=== PATIENT | female | born 1970 | race Caucasian/White ===

== ENCOUNTER 2017-08-23 09:56 | Outpatient (CLI) | payer OTHER ==
--- NOTE | 2017-08-23 14:39 | MMO ---
MAMMOGRAM DIGITAL SCREENING BILATERAL: DATE: 08/23/17. COMPARISON: 08/02/16, 05/13/15, and 04/14/14. HISTORY: A 47-year-old female for routine bilateral screening mammogram. TECHNIQUE: Digital mammographic views. Computer-aided detection (CAD) utilized. FINDINGS: The breasts are extremely dense, which lowers the sensitivity of mammography. There is no evidence of suspicious mass, suspicious calcifications, or architectural distortion. The re is no significant interval change since the prior mammogram. IMPRESSION: 1) BIRADS 1- Negative. 2) Recommendation: routine bilateral annual screening mammogram (unless the patient develops suspicio us clinical findings that would warrant earlier imaging follow up). fabian [] POS: FAWN
== END 2017-08-23 09:57 | disposition home or self-care (01) ==
LOC: SCSMAMMO 09:56
PROVIDERS: ATTEND Obstetrics & Gynecology
DX: Z12.31 Encounter for screening mammogram for malignant neoplasm of breast (principal)
CPT/HCPCS: 77067

== ENCOUNTER 2020-04-05 17:04 | Inpatient (IN) | payer OTHER ==
[2020-04-05 18:07] LABS: #Basophils 0.1 thou/uL (0.0-0.2); #Eosinphils 0.1 thou/uL (0.0-0.7); #Lymphocytes 2.4 thou/uL (1.20-3.40); #Monocytes 0.6 thou/uL (0.11-0.59); #Neutrophils 4.6 thou/uL (1.40-6.50); %Basophils 0.7 % (0.0-1.0); %Eosinophils 0.9 % (0.0-10.0); %Lymphocytes 31.2 % (21.0-51.0); %Monocytes 7.8 % (0.0-10.0); %Neutrophils 59.4 % (42.0-75.0); Mean Corpuscular HGB CONC 34.6 g/dL (32.0-36.0); Mean Corpuscular Hemoglobin 31.5 pg (27.0-31.0); Mean Platelet Volume 10.1 fL (7.4-10.4); Platelet Count 169 thou/uL (130-400); RBC Distribution Width 11.6 % (11.5-14.5); Red Blood Cell (RBC) Count 5.08 mill/uL (4.20-5.40); White Blood Cell (WBC) Count 7.8 thou/uL (4.8-10.8)
--- NOTE | 2020-04-05 18:16 | RAD ---
PORTABLE CHEST: History: Heart palpitations Comparison: None FINDINGS: Heart size and mediastinum within normal limits. Electronic device overlying the left chest. There is a nodular density seen in the right upper lobe measuring in the 7-8 mm range. This is not definitely calcified. There is moderate S-shaped scoliotic change to the spine. IMPRESSION: 1. No active intrathoracic disease. 2. 7 mm right upper lobe pulmonary nodule. There are no prior chest x-rays for comparison. I would grijalva ggest consideration for CT on a non-emergent basis for assessment. POS: OFF
[2020-04-05 18:27] LABS: Bacteria/HPF None Seen HPF (None Seen); Bilirubin Negative (Negative); Blood, Urine Negative (Negative); Clarity Clear (Clear); Glucose, Urine (Dipstick) Normal (Negative); Ketone, Urine 10 mg/dL (Negative); Leukocyte 75 Leu/uL (Negative); Nitrite Negative (Negative); Protein, Urine (Dipstick) Negative (Neg-Trace); RBC/HPF 0-3 HPF (0-3); Specific Gravity, Urine 1.005 (1.002-1.036); Urobilinogen Normal mg/dL (Less than 2); pH, Urine 5.5 (5.0-9.0)
[2020-04-05 18:28] LABS: ALT (SGPT) 12 U/L (8-55); AST (SGOT) 18 U/L (5-34); Albumin 4.7 g/dL (3.5-5.0); Alkaline Phosphatase 69 U/L (40-110); Anion Gap 13 mmol/L (10-20); BUN (Urea Nitrogen) 10 mg/dL (9.8-20.1); Bilirubin, Total 0.8 mg/dL (0.2-1.2); Calc. Creatinine Clearance 0 mL/min (70-130); Calcium 9.5 mg/dL (7.8-10.44); Carbon Dioxide 28 mmol/L (22-29); Chloride 100 mmol/L (98-107); Estimated GFR-MDRD 73; Globulin 3.2 g/dL (2.4-3.5); Glucose 118 mg/dL (70-105); Lipase 59 U/L (8-78); Magnesium 2.1 mg/dL (1.6-2.6); Potassium 3.4 mmol/L (3.5-5.1); Protein, Total 7.9 g/dL (6.0-8.3); Sodium 138 mmol/L (136-145)
[2020-04-05 18:29] LABS: Amphetamine Not Detected (NotDetected); Barbiturates Screen Not Detected (NotDetected); Benzodiazepine Screen Not Detected (NotDetected); Cocaine Metabolite Screen Not Detected (NotDetected); Medtox Control Line Valid? VALID (VALID); Medtox Reader # READER 1; Methadone Not Detected (NotDetected); Methamphetamine Not Detected (NotDetected); Opiate Screen Not Detected (NotDetected); Oxycodone Screen Not Detected (NotDetected); Phencyclidine (PCP) Not Detected (NotDetected); THC/Cannabinoid Screen Not Detected (NotDetected); Tricyclic Screen Not Detected (NotDetected)
[2020-04-05] MEDS ORDERED: Mag-Al 1200 mg/1200 mg/30 ML UDCUP ONE (20:16)
[2020-04-05] MEDS ORDERED: Lidocaine Viscous Sol 2% 15 ml UD Cup ONE (20:16)
--- NOTE | 2020-04-05 20:44 | PDOC.HHP ---
Hospitalist HPI - History of Present Illness palpitations History of Present Illness: Ms. Velasco is a 49 year-old female with a PMHx of PACs, who presents to the ED for a 1.5 week onset of worsening palpitations associated with indigestion, and fatigue. Pt reports that 1.5 weeks ago she was awoken from sleep with palpitations. Later that morning she developed indigestion and nausea. Pt has had loss of appetite but no vomiting. Denies heartburn or prior GI issues. Denies chest pain. Reports mild discomfort during palpitations. Denies pressure , tightness, or radiation. Pt has history of PACs beginning in her 20s, but she has never been symptomatic in the past. Pt follows with cardiology, Dr. Hale who she saw in the office for these palpitations three days ago. At that time Dr. Figueroa started pt on a rn cardiac rehab as well as metoprolol 25 mg. Pt reports she has been reluctant to take this medication, but did take one dose this am, with no change in her symptoms. She endorses mild lightheadedness upon standing. Denies changes in vision or LOC. In ED EKG revealed a HR of 79, sinus rhythm. ND interval shortened. QTc 408. t- wave inversions in inferolateral leads, sub-millimeter ST depression in lateral leads V3-V5. Initial troponin 0.016. CXR with no acute process (incidental pulmonary nodule). TSH 20.417, drug screen negative, UA negative, Mg 2.1, Na 138 , K 3.4, BUN/Cr 10/0.82. H/H stable at 16.0/46.2. Vital signs in ER 110/79, 81, 16, 98% on RA. HD stable. Hospitalist ROS - Review of Systems Constitutional: reports: malaise. denies: fever, chills, sweats, weakness, other Eyes: denies: pain, vision change, conjunctivae inflammation, eyelid inflammation, redness, other ENT: denies: ear pain, ear discharge, nose pain, nose discharge, nose congestion , mouth pain, mouth swelling, throat pain, throat swelling, other Respiratory: denies: cough, dry, shortness of breath, hemoptysis, SOB with excertion, pleuritic pain, sputum, wheezing, other Cardiovascular: reports: palpitations. denies: chest pain, orthopnea, paroxysmal noc. dyspnea, edema, light headedness, other Gastrointestinal: reports: nausea. denies: vomiting, abdominal pain, diarrhea, constipation, melena, hematochezia, other Genitourinary: denies: dysuria, frequency, incontinence, hematuria, retention, other Musculoskeletal: denies: neck pain, shoulder pain, arm pain, back pain, hand pain, leg pain, foot pain, other Skin: denies: rash, lesions Neurological: denies: weakness, numbness, incoordination, change in speech, confusion, seizures, other - Medication Medications: No home medications. Pt recently rx metoprolol [address] Ford which she has only taken one dose of. Hospitalist History - Past Medical History Cardiac: reports: Other (PACs) - Family History Family History: reports: no pertinent history - Social History Smoking Status: Never smoker Alcohol: reports: None Drugs: reports: none Living Situation: With Family Activity level: independent ambulation - Exam General Appearance: NAD, awake alert Eye: PERRL, anicteric sclera ENT: normocephalic atraumatic, no oropharyngeal lesions, moist mucosa Neck: supple, symmetric, no JVD, no thyromegaly, no lymphadenopathy, no carotid bruit Heart: RRR, no murmur, no gallops, no rubs, normal peripheral pulses Respiratory: CTAB, no wheezes, no rales, no ronchi, normal chest expansion, no tachypnea, normal percussion Gastrointestinal: soft, non-tender, non-distended, normal bowel sounds, no palpable masses, no hepatomegaly, no splenomegaly, no bruit Extremities: no cyanosis, no clubbing, no edema Skin: normal turgor, no lesions, no rashes Neurological: cranial nerve grossly intact, normal sensation to touch, no weakness, no focal deficits, no new deficit Musculoskeletal: normal tone, normal strength Psychiatric: normal affect, normal behavior, A&O x 3 Hospitalist Results - Labs Result Diagrams: 04/05/20 17:47 04/05/20 17:11 Lab results: WBC 7.8 thou/uL (4.8-10.8) 04/05/20 17:47 Hgb 16.0 g/dL (12.0-16.0) 04/05/20 17:47 Hct 46.2 % (36.0-47.0) 04/05/20 17:47 MCV 91.0 fL (78.0-98.0) 04/05/20 17:47 Plt Count 169 thou/uL (130-400) 04/05/20 17:47 Neutrophils % 59.4 % (42.0-75.0) 04/05/20 17:47 Sodium 138 mmol/L (136-145) 04/05/20 17:11 Potassium 3.4 mmol/L (3.5-5.1) L 04/05/20 17:11 Chloride 100 mmol/L (98-107) 04/05/20 17:11 Carbon Dioxide 28 mmol/L (22-29) 04/05/20 17:11 BUN 10 mg/dL (9.8-20.1) 04/05/20 17:11 Creatinine 0.82 mg/dL (0.6-1.1) 04/05/20 17:11 Glucose 118 mg/dL (70-105) H 04/05/20 17:11 Calcium 9.5 mg/dL (7.8-10.44) 04/05/20 17:11 Total Bilirubin 0.8 mg/dL (0.2-1.2) 04/05/20 17:11 AST 18 U/L (5-34) 04/05/20 17:11 ALT 12 U/L (8-55) 04/05/20 17:11 Alkaline Phosphatase 69 U/L (40-110) 04/05/20 17:11 Troponin I 0.016 ng/mL (< 0.028) 04/05/20 17:10 Serum Total Protein 7.9 g/dL (6.0-8.3) 04/05/20 17:11 Albumin 4.7 g/dL (3.5-5.0) 04/05/20 17:11 Lipase 59 U/L (8-78) 04/05/20 17:11 Urine Ketones 10 mg/dL (Negative) A 04/05/20 18:00 Urine Blood Negative (Negative) 04/05/20 18:00 Urine Nitrite Negative (Negative) 04/05/20 18:00 Ur Leukocyte Esterase 75 Arely/uL (Negative) A 04/05/20 18:00 Urine RBC 0-3 HPF (0-3) 04/05/20 18:00 Urine WBC 4-6 HPF (0-3) A 04/05/20 18:00 Ur Squamous Epith Cells 4-6 HPF (0-3) A 04/05/20 18:00 Urine Bacteria None Seen HPF (None Seen) 04/05/20 18:00 Hospitalist H&P A/P - Problem (1) Heart palpitations Code(s): R00.2 - PALPITATIONS Status: Acute (2) Indigestion Code(s): K30 - FUNCTIONAL DYSPEPSIA Status: Acute (3) Hypokalemia Code(s): E87.6 - HYPOKALEMIA Status: Acute (4) Pulmonary nodule Code(s): R91.1 - SOLITARY PULMONARY NODULE Status: Acute - Plan Plan: Heart Palpitations: 49F with hx of PACs followed by Dr. Figueroa of cardiology who presents with 1.5 week onset of persistent palpitations associated with nausea, indigestion, and fatigue. Pt has rn cardiac rehab in place from the cardiology office placed on 04/02/20. Initial workup in the ED revealed an EKG which showed NSR with non- specific t-wave inversions, a normal QTc, and shortened ND interval of 82. Initial troponin 0.016. Pt denies chest pain. TSH nl. CXR no acute process. Drug screen negative. Mg 2.1. PLAN: -Telemetry monitoring -Trend troponin -ASA -Echocardiogram -Repeat EKG -Dr. Ford consulted, reccs appreciated Indigestion: 1.5 weeks of indigestion and poor PO intake associated with palpitations. Denies hx of prior GI problems such as GERD. Pt received GI cocktail in ED. PLAN: -GI cocktail -Start pantoprazole Hypokalemia: Mild hypokalemia to 3.4. Will repelete and monitor. Pulmonary nodule: Incidental pulmonary nodule noted on CXR of 7mm. Pt will need outpatient follow up with CT scan in 6-8 months per Fleischner Guidelines. DVT prophylaxis: SCD boots, encourage ambulation FULL CODE Case discussed with attending physician, Dr. Castanon.
[2020-04-05 21:02] LABS: Troponin I 0.023 ng/mL (< 0.028)
[2020-04-05] MEDS ORDERED: Lactated Ringer's 1,000 ML IV SCH ×2 (22:00→22:15)
[2020-04-05] MEDS ORDERED: Electrolyte Replacement Protoc 1 EACH EACH FS SCH (22:15)
[2020-04-05] MEDS ORDERED: Lactated Ringer's 500 ML IV SCH (22:19)
[2020-04-05] MEDS ORDERED: Aspirin 325 mg Enteric Coated Tablet PO SCH (22:30)
[2020-04-05] MEDS ORDERED: Potassium Chloride 40 MEQ in Sodium Chloride 0.9% 250 ML 250 ML IVPB SCH (22:30)
[2020-04-05 23:41] LABS: Troponin I 0.012 ng/mL (< 0.028)
[2020-04-06 04:31] LABS: #Basophils 0.1 thou/uL (0.0-0.2); #Eosinphils 0.1 thou/uL (0.0-0.7); #Lymphocytes 2.7 thou/uL (1.20-3.40); #Monocytes 0.7 thou/uL (0.11-0.59); #Neutrophils 3.3 thou/uL (1.40-6.50); %Basophils 0.7 % (0.0-1.0); %Eosinophils 2.1 % (0.0-10.0); %Lymphocytes 39.1 % (21.0-51.0); %Neutrophils 48.2 % (42.0-75.0); Mean Corpuscular HGB CONC 32.8 g/dL (32.0-36.0); Mean Corpuscular Volume 91.6 fL (78.0-98.0); Mean Platelet Volume 10.2 fL (7.4-10.4); Platelet Count 150 thou/uL (130-400); RBC Distribution Width 11.6 % (11.5-14.5); Red Blood Cell (RBC) Count 4.65 mill/uL (4.20-5.40); White Blood Cell (WBC) Count 6.8 thou/uL (4.8-10.8)
[2020-04-06 04:50] LABS: Anion Gap 11 mmol/L (10-20); BUN (Urea Nitrogen) 10 mg/dL (9.8-20.1); Calc. Creatinine Clearance 69 mL/min (70-130); Calcium 8.8 mg/dL (7.8-10.44); Carbon Dioxide 25 mmol/L (22-29); Chloride 106 mmol/L (98-107); Estimated GFR-MDRD 84; Glucose 95 mg/dL (70-105); Potassium 4.1 mmol/L (3.5-5.1); Sodium 138 mmol/L (136-145)
[2020-04-06] MEDS ORDERED: Aspirin 325 mg Enteric Coated Tablet PO SCH (09:00)
--- NOTE | 2020-04-06 10:49 | PDOC.HOSPP ---
- Subjective Encounter Date: 04/06/20 Encounter Time: 07:20 Subjective: Patient was seen in follow-up for palpitations. She reports on and off palpitations. She reports that she has not been eating well secondary to palpitations. She reports losing weight. - Objective Vital Signs & Weight: Vital Signs (12 hours) Temp Pulse Resp BP Pulse Ox 04/06/20 07:11 97.7 F 64 14 106/71 98 04/06/20 03:18 97.7 F 68 18 102/71 98 04/05/20 23:15 61 18 115/71 Weight Weight 106 lb 6.4 oz I&O: 04/05/20 04/06/20 04/07/20 06:59 06:59 06:59 Intake Total 939 Output Total 300 Balance 639 Result Diagrams: 04/06/20 04:12 04/06/20 04:12 Additional Labs: I reviewed patient's labs and MAR EKG Reviewed by me: Yes (Telemetry-NSR) Hospitalist ROS - Review of Systems Cardiovascular: reports: palpitations. denies: chest pain, orthopnea, paroxysmal noc. dyspnea, edema, light headedness Gastrointestinal: denies: nausea, vomiting, abdominal pain, diarrhea, constipation, melena, hematochezia - Medication Medications: Active Medications Generic Name Dose Route Start Last Admin Trade Name Freq PRN Reason Stop Dose Admin Metoprolol Succinate 25 mg 04/06/20 09:00 04/06/20 10:24 Toprol Xl PO Not Given DAILY TYREE Sodium Chloride 10 ml 04/05/20 20:14 04/05/20 22:15 Flush - Normal Saline IVF 10 ml PRN PRN Administration Saline Flush - Exam General Appearance: awake alert Eye: anicteric sclera ENT: moist mucosa Neck: supple Heart: RRR Respiratory: CTAB Gastrointestinal: soft, non-tender Extremities: no cyanosis Skin: no rashes Musculoskeletal: normal tone, no muscle wasting Psychiatric: normal affect, normal behavior Hosp A/P - Plan (1) Heart palpitations Code(s): R00.2 - PALPITATIONS Status: Acute (2) UTI Status: Acute (4) Pulmonary nodule Code(s): R91.1 - SOLITARY PULMONARY NODULE Status: Acute - Plan Monitor on telemetry. Await cardiology input. Discussed with pt re: urine findings. Pt has a h/o UTIs in the past, responded to Bactrim Pt agrees to treatment. Follow up on lung nodule as outpatient.
[2020-04-06] MEDS ORDERED: Sulfameth/Trimethoprim DS 800-160mg TAB PO SCH (11:30)
[2020-04-06 11:41] LABS: SARS-CoV-2 MS2 Positive; SARS-CoV-2 N Gene Negative; SARS-CoV-2 S Gene Negative; SARS-CoV-2 by NAA Not Detected (NotDetected); SARS-CoV-2 orf1ab Negative
--- NOTE | 2020-04-06 12:44 | CON ---
DATE OF CONSULTATION: 04/06/2020 REASON FOR CONSULTATION: Palpitations. PRIMARY NETWORK SYSTEMS ADMINISTRATOR: Anton Figueroa MD HISTORY OF PRESENT ILLNESS: Ms. Velasco is a very pleasant 49-year-old white female who comes to the hospital for palpitations. She saw Dr. Figueroa on the 02 of April for the same reason. She had a Cardea SOLO setup. At that point, she had seen her primary care doctor that morning and an EKG was done. She had an irregular rhythm that was suspicious for atrial fibrillation; however, on Dr. Figueroa's evaluation, she actually was in sinus rhythm with multiple PACs making her heart rhythm look irregular. No atrial fibrillation. She was started on a beta keegan, however, she did not take it. She did not want to be on any medications, so she did not take this medicine. She started to feel a lot worse yesterday evening, so decided to take one dose at that time, but she ended up coming in because she felt like there was a chest tightness every time the PACs started to come. PAST MEDICAL HISTORY: PACs. SOCIAL HISTORY: No alcohol, tobacco, or drugs. FAMILY HISTORY: Negative. OUTPATIENT MEDICATIONS: None. She is supposed to be on Toprol-XL 25 mg a day, but she has not really been taking it. ALLERGIES: PENICILLIN. PAST SURGICAL HISTORY: None. REVIEW OF SYSTEMS: A 12-point review of systems was done and was found to be negative other than stated in the history of present illness. PHYSICAL EXAMINATION: VITAL SIGNS: Temperature 97.6, pulse 72, respiratory rate 18, satting 98% on room air, blood pressure 106/71. GENERAL: Awake, alert, oriented x3, no distress. HEENT: Normocephalic and atraumatic. NECK: Supple. LUNGS: Clear. CARDIOVASCULAR: S1 and S2. No S3 or S4. No murmurs. ABDOMEN: Soft. Positive bowel sounds. EXTREMITIES: No edema. SKIN: Warm and dry. LABORATORY WORK: Reviewed. CBC was unremarkable. Chemistry, she had a low potassium at 3.4, has been replaced, it is now 4.1. Troponin was negative x3. TSH was normal. UA was unremarkable. Toxicology was negative. COVID PCR was not detected. Chest x-ray was unremarkable. ASSESSMENT AND PLAN: 1. Premature atrial contractions. 2. A 7 mm right upper pulmonary nodule. PLAN: 1. Restart beta keegan. 2. Awaiting echocardiogram for today. 3. She states she feels there is a chest tightness. She feels like she is having a heart attack when she gets the PACs. I would prefer to risk stratify her as an inpatient. We will set up a stress test for tomorrow as the room is being terminally cleaned today and unavailable. Thank you for letting us to participate in the care of your patient. Dr. Figueroa is the primary brake repairer bus and will follow up in the morning. Job ID: [id number]
[2020-04-06] MEDS: Aspirin 81 mg Enteric Coated Tablet PO SCH (14:09)
[2020-04-06] MEDS: Sulfameth/Trimethoprim DS 800-160mg TAB PO SCH (19:52)
[2020-04-07 04:47] LABS: #Eosinphils 0.2 thou/uL (0.0-0.7); #Lymphocytes 1.9 thou/uL (1.20-3.40); #Monocytes 0.7 thou/uL (0.11-0.59); #Neutrophils 3.8 thou/uL (1.40-6.50); %Basophils 0.4 % (0.0-1.0); %Eosinophils 2.6 % (0.0-10.0); %Monocytes 11.2 % (0.0-10.0); %Neutrophils 56.9 % (42.0-75.0); Hemoglobin 15.3 g/dL (12.0-16.0); Mean Corpuscular HGB CONC 33.2 g/dL (32.0-36.0); Mean Corpuscular Hemoglobin 30.6 pg (27.0-31.0); Mean Platelet Volume 10.4 fL (7.4-10.4); Platelet Count 157 thou/uL (130-400); RBC Distribution Width 11.7 % (11.5-14.5); White Blood Cell (WBC) Count 6.6 thou/uL (4.8-10.8)
[2020-04-07 05:15] LABS: Anion Gap 15 mmol/L (10-20); BUN (Urea Nitrogen) 9 mg/dL (9.8-20.1); Calc. Creatinine Clearance 63 mL/min (70-130); Calcium 9.2 mg/dL (7.8-10.44); Carbon Dioxide 21 mmol/L (22-29); Chloride 106 mmol/L (98-107); Estimated GFR-MDRD 75; Glucose 94 mg/dL (70-105); Potassium 4.2 mmol/L (3.5-5.1); Sodium 138 mmol/L (136-145)
[2020-04-07] MEDS ORDERED: Regadenoson 0.4 MG/5 ML SYRINGE ONE (10:43)
--- NOTE | 2020-04-07 11:09 | NM ---
EXAM: CARDIAC SPECT HISTORY: Chest pain TECHNIQUE: A myocardial perfusion scan was performed using the single isotope 1 day protocol with tamia hnetium 99m sestamibi. [10 mCi] was injected intravenously for the rest exam followed by 30 mCi for the stress study. Pharmacologic stress with Lexiscan was monitored and interpreted by Scar Neal NP. FINDINGS: Homogeneous tracer distribution is seen in the myocardial segments on stress and rest image s without fixed or reversible defects. Gated SPECT LVEF: 93% Wall motion exam: Normal IMPRESSION: Normal myocardial perfusion scan
[2020-04-07] MEDS: Aspirin 81 mg Enteric Coated Tablet PO SCH (12:43)
[2020-04-07] MEDS: Sulfameth/Trimethoprim DS 800-160mg TAB PO SCH ×2 (12:43→21:37)
[2020-04-07] MEDS ORDERED: Iopamidol-370 76% 500 ML 1 ML ONE (13:07)
--- NOTE | 2020-04-07 13:29 | PRG ---
DATE OF SERVICE: 04/07/2020 SUBJECTIVE: Ms. Velasco continues to complain of decreased energy and decreased appetite. No specific chest pain, pressure, shortness of breath. She did have an EKG that did suggest inverted T-waves, which is slightly worse than her previous EKG 2 years ago. Her recent stress test was felt to be normal. Her echo also showed LVEF 60% to 65% with normal diastolic function. Her monitor on telemetry has been within normal limits with rare PVCs or PACs. OBJECTIVE: VITAL SIGNS: Blood pressure 122/74, pulse 74, temperature 98.4. LUNGS: Clear to auscultation. HEART: Deferred due to COVID. PERTINENT LABORATORY DATA: Hemoglobin 15.3, hematocrit 46. IMPRESSION: 1. Decreased energy. 2. Decreased appetite. 3. Abnormal EKG. RECOMMENDATIONS: Ms. Velasco initially was felt to be having symptoms for PACs. These were noted in the office late last week. She was placed on Toprol. It appears this has helped because she has had no PVCs on the monitor, but continues with decreased energy and decreased appetite. There does not appear to be any specific cardiac symptoms noted. Based on her EKG, I did discuss proceeding with coronary angiography which I think will be of low yield based on no risk factors and no symptoms of angina. She has deferred. From a cardiac standpoint, I have no further recommendations. We will review her Cardea Solo which is due today. Job ID: [id number]
--- NOTE | 2020-04-07 16:46 | PDOC.HOSPP ---
- Subjective Encounter Date: 04/07/20 Encounter Time: 16:45 Subjective: Pt seen for followup re:UTI. reports ongoing poor appetite. - Objective Vital Signs & Weight: Vital Signs (12 hours) Temp Pulse Resp BP BP Pulse Ox 04/07/20 15:16 97.9 F 73 16 119/75 97 04/07/20 11:02 98.4 F 84 16 124/74 97 04/07/20 07:11 98.3 F 73 16 111/68 97 Weight Admit Weight 106 lb 6.4 oz Weight 107 lb 6.4 oz I&O: 04/06/20 04/07/20 04/08/20 06:59 06:59 06:59 Intake Total 939 1800 Output Total 300 1220 400 Balance 639 580 -400 Result Diagrams: 04/07/20 04:14 04/07/20 04:14 Additional Labs: Labs and MARs reviewed by me EKG Reviewed by me: Yes (Tele: NSR) Hospitalist ROS - Review of Systems Constitutional: denies: fever, chills, sweats, weakness, malaise Cardiovascular: reports: palpitations. denies: chest pain, orthopnea, paroxysmal noc. dyspnea, edema, light headedness Gastrointestinal: reports: nausea, abdominal pain, other (poor appetite). denies: vomiting, diarrhea, constipation, melena, hematochezia - Medication Medications: Active Medications Generic Name Dose Route Start Last Admin Trade Name Freq PRN Reason Stop Dose Admin Aspirin 81 mg 04/06/20 09:00 04/07/20 12:43 Ecotrin PO Not Given DAILY TYREE Metoprolol Succinate 12.5 mg 04/07/20 09:00 04/07/20 12:42 Toprol Xl PO 12.5 mg DAILY TYREE Administration Sodium Chloride 10 ml 04/05/20 20:14 04/05/20 22:15 Flush - Normal Saline IVF 10 ml PRN PRN Administration Saline Flush Trimethoprim/Sulfamethoxazole 1 tab 04/06/20 21:00 04/07/20 12:43 Bactrim Ds PO 1 tab BID TYREE Administration - Exam General Appearance: awake alert Eye: anicteric sclera ENT: moist mucosa Neck: supple Heart: RRR Respiratory: CTAB Gastrointestinal: soft, non-tender Extremities: no cyanosis Skin: no rashes Psychiatric: normal affect, normal behavior Hosp A/P - Plan (1) UTI Status: Acute (2) Poor appetite Status: Acute (3) Heart palpitations Code(s): R00.2 - PALPITATIONS Status: Acute (4) Pulmonary nodule Code(s): R91.1 - SOLITARY PULMONARY NODULE Status: Acute - Plan Continue Bactrim Stress test normal. Consult GI for opinion re: epigastric discomfort and poor appetite.
[2020-04-07 18:40] LABS: BHCG - Serum Negative (NEGATIVE); Pregs Control Background? CLEAR/WHITE (CLR/WHITE); Pregs Control Bar Appear? YES (CONTROL BAR)
--- NOTE | 2020-04-07 20:18 | CON ---
DATE OF CONSULTATION: 04/07/2020 CHIEF COMPLAINT: Upper abdominal discomfort and palpitations. HISTORY OF PRESENT ILLNESS: Ms. Velasco is a 49-year-old woman who has had no prior medical problems other than history of premature atrial complexes with palpitations, who a week and half ago developed more persistent and frequent palpitations. Along with this, she developed pressure-type discomfort in the upper epigastric region that radiates a little bit toward the right upper quadrant. She has also lost her appetite and has lost a couple of pounds. She feels full immediately after eating small amounts. She has had overall normal bowel movements once daily easily passed brown stools. She did have an episode a couple of weeks ago. She had to strain, is some hard stool, but that is highly unusual for her. Her weight has been stable over the preceding 6 months before this. Normally, she has a very good appetite and eats well, but this change with the loss of appetite, upper abdominal discomfort, and palpitations, she is very worried and concerned. She feels like there is something going on with her body. She just cannot pinpoint what it is. Her symptoms are not markedly changed by any particular foods over others. PAST MEDICAL HISTORY: Premature atrial complexes. PAST SURGICAL HISTORY: She had a uterine ablation. FAMILY HISTORY: Her mother had a large colon polyp that required endoscopic mucosal resection. SOCIAL HISTORY: No alcohol, tobacco, or drugs. ALLERGIES: PENICILLIN. MEDICATIONS: Prior to admission, she started a beta keegan couple of days before she came in, which had been prescribed in the past, but otherwise she does not take any medications. She takes Advil maybe once or twice per month. REVIEW OF SYSTEMS: Negative x10 systems reviewed except as stated in the history of present illness. PHYSICAL EXAMINATION: VITAL SIGNS: Temperature 97.9, pulse 73, and blood pressure 119/75. GENERAL: She is in no acute distress. Alert and oriented x3. HEENT: Eyes have no scleral icterus. Oropharynx is clear without lesions. NECK: No cervical or supraclavicular lymphadenopathy. LUNGS: Clear to auscultation bilaterally. HEART: Regular rate and rhythm without murmur. ABDOMEN: Soft. Minimal discomfort in the upper epigastric region without guarding. Bowel sounds are present. EXTREMITIES: No lower extremity edema. She has no pain in the right upper quadrant to palpation. NEUROLOGIC: Cranial nerves are grossly intact. LABORATORY DATA: White blood cell count 6.6, hemoglobin 15.3, platelets 157, creatinine 0.81, bilirubin 0.8, AST 18, ALT 12, alkaline phosphatase 69, and TSH 2.4. Lipase 59. Troponins negative. Urine drug screen was negative. IMPRESSION: 1. Upper epigastric mild discomfort almost at the level of xiphoid process, which radiates slightly over to the right upper quadrant over the last week and a half, associated with palpitations. Her cardiac workup is negative. She does not have a history of typical acid reflux. However, the symptoms could be due to gastroesophageal reflux, gastritis, and peptic ulcer. Less likely gallbladder could be considered. 2. Family history of a large colon polyp in her mother requiring endoscopic mucosal resection. She is due for colon cancer screening now. RECOMMENDATIONS: 1. EGD tomorrow. The schedule is quite full for tomorrow and we are awaiting. She can get an ultrasound of her right upper quadrant done in the morning. 2. Colonoscopy can be performed as an outpatient next week for screening. 3. If the endoscopy is negative, I would still give a 4-week trial of proton pump inhibitor. Job ID: [id number]
--- NOTE | 2020-04-07 20:55 | CT ---
CT ANGIOGRAM THORAX WITH CONTRAST: (CTA pulmonary angiogram) DATE: 04/07/2020 HISTORY: 49-year-old female with chest pain and elevated d-dimer. Dr. Sanabria verbally reported the PE and pulmonary nodule for follow-up by [place] connect text to Dr. Chon Mortensen at 8:49 PM 04/07/2020, and to nurse Ramonita Womack at 8:53 PM 04/07/2020. TECHNIQUE: IV injection of iodinated contrast. Scan acquisition timing attempted to coincide with iodinated contrast bolus reaching maximal density in pulmonary arteries. 3-D MIP reconstructions. FINDINGS: There is a 6 x 8 x 6 mm right upper lobe pulmonary nodule close to the anterolateral pleural surface. It contains a few small internal calcifications. It also contains a short tail. If the tail is included in the AP measurement, it would be 9 mm. There are several filling defects representing small thromboemboli in first and second order branches of the right lower lobe pulmonary artery. There are a few small filling defects representing small thromboemboli in first, second, and third or sakshi branches of the left lower lobe pulmonary artery. No pulmonary thromboembolism in the pulmonic trunk or left and right main pulmonary arteries. No thoracic aortic aneurysm, dissection, or rupture. No pleural effusion, cardiomegaly, or cardial effusion, or pneumothorax. No pulmonary edema or focal infiltrate. Mild S-shaped scoliosis of thoracic spine. IMPRESSION: 1) positive for bilateral pulmonary thromboembolism. 2.) 8 mm right upper lobe pulmonary nodule, partially calcified. Recommend serial follow-up chest CTs , beginning in 3 months.
[2020-04-07] MEDS ORDERED: ALPRAZolam 0.25 MG TAB PO PRN (21:37)
[2020-04-07] MEDS: Enoxaparin Sodium 60 MG/0.6 ML SYRINGE SC SCH (21:38)
--- NOTE | 2020-04-07 21:49 | PDOC.EVN ---
Event Note - Event Note Event Note: Notified by RN, patient with findings of bilateral PEs on CT imaging. Patient with vague symptoms of fatigue, decreased appetite/PO intake for weeks and palpitations. D-dimer was ordered and slightly elevated which prompted CTA which has demonstrated small thromboemboli in first and second order branches of right lower lobe pulmonary artery, as well as the first, second and thrid branches of left lower lobe pulmonary artery. The RUL lung nodule seen on CXR imaging noted as well, measuring 8mm. Patient started on Lovenox 1 mg/kg BID. Oncology consult placed as per discussion with Dr. Mortensen. I have discussed above findings and plan with patient who is visibly upset and concerned about provoking underlying issue for PEs. She denies any chest pain, sob, cough/hemoptysis. Only complaint is general fatigue and lack of appetite. Also difficulty sleeping. Requesting to see her . We will obtain permission from housekeeping worker. Will give Xanax 0.25mg to help with anxiety/insomnia. GI team to be notified of anticoagulation, as this will affect plans for endoscopy/biopsies that were planned for tomorrow morning.
[2020-04-08 04:48] LABS: #Eosinphils 0.1 thou/uL (0.0-0.7); #Lymphocytes 1.5 thou/uL (1.20-3.40); #Monocytes 0.6 thou/uL (0.11-0.59); #Neutrophils 4.6 thou/uL (1.40-6.50); %Basophils 0.6 % (0.0-1.0); %Eosinophils 1.2 % (0.0-10.0); %Lymphocytes 22.8 % (21.0-51.0); %Monocytes 8.2 % (0.0-10.0); %Neutrophils 67.3 % (42.0-75.0); Hemoglobin 15.6 g/dL (12.0-16.0); Mean Corpuscular HGB CONC 33.3 g/dL (32.0-36.0); Mean Corpuscular Hemoglobin 30.6 pg (27.0-31.0); Platelet Count 152 thou/uL (130-400); RBC Distribution Width 11.6 % (11.5-14.5); White Blood Cell (WBC) Count 6.8 thou/uL (4.8-10.8)
[2020-04-08 05:06] LABS: Anion Gap 16 mmol/L (10-20); BUN (Urea Nitrogen) 8 mg/dL (9.8-20.1); Calc. Creatinine Clearance 55 mL/min (70-130); Calcium 9.8 mg/dL (7.8-10.44); Carbon Dioxide 24 mmol/L (22-29); Chloride 103 mmol/L (98-107); Estimated GFR-MDRD 64; Glucose 102 mg/dL (70-105); Potassium 4.1 mmol/L (3.5-5.1); Sodium 139 mmol/L (136-145)
--- NOTE | 2020-04-08 07:36 | ULT ---
RIGHT UPPER QUADRANT ABDOMINAL ULTRASOUND: INDICATION: History of epigastric pain and loss of appetite. COMPARISON: None. FINDINGS: No focal hepatic lesion is evident. Gallbladder is normal-appearing. No sonographic Marquis's sign is reported. Common bile duct measured 2.6 mm. The right kidney measured 8.7 x 3.4 x 3.7 cm. No fo talha renal lesion or hydronephrosis is evident. Pancreatic tail is partially obscured. IMPRESSION: No acute sonographic abnormality in the right upper quadrant. POS: BH
[2020-04-08] MEDS: Enoxaparin Sodium 60 MG/0.6 ML SYRINGE SC SCH (07:55)
[2020-04-08 08:36] VITALS: BMI 20.9
[2020-04-08] MEDS: Aspirin 81 mg Enteric Coated Tablet PO SCH (09:21)
[2020-04-08] MEDS: Sulfameth/Trimethoprim DS 800-160mg TAB PO SCH ×2 (09:22→21:09)
--- NOTE | 2020-04-08 11:54 | PRG ---
DATE OF SERVICE: 04/08/2020 SUBJECTIVE: Last night, the patient underwent CT angiogram and this actually demonstrated multiple bilateral pulmonary emboli. She was started on anticoagulation. She is feeling slightly better this morning. No more palpitations. Feeling of indigestion has significantly improved. OBJECTIVE: VITAL SIGNS: Temperature 98.0, pulse rate 69, blood pressure 117/72, and 97% oxygen saturation on room air. GENERAL: No acute distress. HEART: Regular rate and rhythm. LUNGS: Clear to auscultation bilaterally. ABDOMEN: Bowel sounds present. Soft and nontender to palpation. EXTREMITIES: No peripheral edema. LABORATORY STUDIES: WBC 6.8, hemoglobin 15.6, and platelets are 152. D-dimer 0.62. Sodium 139, potassium 4.1, BUN 8, creatinine 0.93. Serum test negative. Urine toxicology screen negative. COVID screen negative. IMAGING STUDIES: Abdominal ultrasound from this morning showed no acute abnormalities. Common bile duct is normal at 2.6 mm. Gallbladder is normal. CT angiogram of the thorax from yesterday evening showed several filling defects representing small thromboemboli in the first and second order branches of the right lower lobe pulmonary artery as well as several defects in the 1st, 2nd, and 3rd order branches of the left lower lobe pulmonary artery. There is also an 8 mm right upper lobe pulmonary nodule, which is partially calcified. ASSESSMENT/PLAN: 1. Bilateral pulmonary emboli. 2. Chest pain and palpitations, probably secondary to bilateral pulmonary emboli. The patient has been started appropriately on Lovenox. I do not think we should proceed with any diagnostic EGD today; rather, we will advance her diet to full liquids today and see how she does with her symptoms, now that anticoagulation has been started, GI can follow along tomorrow. If the patient has symptomatic improvement, we may be able to avoid endoscopy altogether. Job ID: [id number]
[2020-04-08] MEDS ORDERED: Fentanyl 100 MCG/2 ML VIAL ONE (12:01)
--- NOTE | 2020-04-08 14:05 | PRG ---
DATE OF SERVICE: 04/08/2020 SUBJECTIVE: Ms. Velasco is doing okay today. She was recently diagnosed with bilateral PE. This likely is representing her symptoms of increased fatigue and palpitations. She had nonspecific chest pain pressure noted. She also had EKG changes that are worse than her previous EKG. . She did admit to having a 3-hour flight to [place] in December and also had a long car trip of 8 to 10 hours to [place], [place] in late January. OBJECTIVE: VITAL SIGNS: Blood pressure 117/74, pulse , temperature 98. GENERAL: The patient is a pleasant female, in no acute distress, appears stated age. HEAD, EYES, EARS, NOSE AND THROAT: Sclerae without icterus. Mouth: Moist mucous membranes, normal palate. NECK: No jugular venous distention. Carotid upstroke is brisk. No bruits bilaterally. LUNGS: Clear to auscultation. HEART: Regular rate and rhythm, normal S1 and S2. ABDOMEN: Soft, nontender, nondistended. EXTREMITIES: No edema. PERTINENT LABORATORY DATA: As above. IMPRESSION: Bilateral PE. RECOMMENDATIONS: Likely from a recent long car trip, although it is currently unknown. We would check a lower extremity duplex to assess for DVT. We would recommend anticoagulation therapy with Eliquis for at least 3 to 6 months. We then need to sit down and discuss on how to treat further at that point with the patient. Otherwise, I have no further recommendations. Job ID: [id number]
--- NOTE | 2020-04-08 15:36 | ULT ---
EXAM: Bilateral lower extremity venous Doppler US HISTORY: bilateral lower extremity edema and pain FINDINGS: Grayscale, color-flow, Doppler evaluation, spectral analysis of the bilateral lower extremities venou s structures is performed with 2-D imaging. The bilateral common femoral, superficial femoral, popliteal, posterior tibial, proximal greater saphenous and profunda femoral veins are imaged. There is normal luminal compressibility, flow, and augmentation in the visualized deep venous structu res of the bilateral lower extremities. IMPRESSION: No evidence of a deep vein thrombosis in either lower extremity.
--- NOTE | 2020-04-08 16:06 | PDOC.HOSPP ---
- Subjective Encounter Date: 04/08/20 Encounter Time: 16:02 Subjective: Patient seen for follow-up regarding pulmonary embolism. Feels better today. - Objective Vital Signs & Weight: Vital Signs (12 hours) Temp Pulse Resp BP Pulse Ox 04/08/20 12:26 99 04/08/20 12:09 98.0 F 77 16 117/70 99 04/08/20 07:15 98 F 69 16 117/72 97 Weight Admit Weight 106 lb 6.4 oz Weight 107 lb 6.4 oz I&O: 04/07/20 04/08/20 04/09/20 06:59 06:59 06:59 Intake Total 1800 480 Output Total 1220 1100 Balance 580 -620 Result Diagrams: 04/08/20 04:30 04/08/20 04:30 Additional Labs: I reviewed patient's labs and MAR EKG Reviewed by me: Yes (Telemetry: Normal sinus rhythm) Hospitalist ROS - Review of Systems Cardiovascular: reports: palpitations. denies: chest pain, orthopnea, paroxysmal noc. dyspnea, edema, light headedness Gastrointestinal: denies: nausea, vomiting, abdominal pain, diarrhea, constipation, melena, hematochezia - Medication Medications: Active Medications Generic Name Dose Route Start Last Admin Trade Name Freq PRN Reason Stop Dose Admin Metoprolol Succinate 12.5 mg 04/07/20 09:00 04/08/20 07:54 Toprol Xl PO 12.5 mg DAILY TYREE Administration Sodium Chloride 10 ml 04/05/20 20:14 04/05/20 22:15 Flush - Normal Saline IVF 10 ml PRN PRN Administration Saline Flush Trimethoprim/Sulfamethoxazole 1 tab 04/06/20 21:00 04/08/20 09:22 Bactrim Ds PO Not Given BID TYREE - Exam General Appearance: awake alert Eye: anicteric sclera ENT: moist mucosa Neck: supple Heart: RRR Respiratory: CTAB Gastrointestinal: soft, non-tender Extremities: no edema Skin: no rashes Musculoskeletal: no muscle wasting Psychiatric: normal affect, normal behavior, A&O x 3 Hosp A/P - Plan (1) pulmonary embolism Status: Acute (2) UTI Status: Acute (3) Heart palpitations Code(s): R00.2 - PALPITATIONS Status: Acute (4) Pulmonary nodule Code(s): R91.1 - SOLITARY PULMONARY NODULE Status: Acute (5) Poor appetite Status: Acute - Plan Patient did not have EGD today because she is feeling better and she is on therapeutic anticoagulation. Discussed with patient regarding treatment options. Risk of anticoagulants discussed. Following discussion, patient agrees to start apixaban. Patient will need follow-up imaging in 3 months to evaluate pulmonary nodule, she is aware of this. If patient is able to tolerate diet, most likely home in 24 to 48 hours.
[2020-04-08] MEDS ORDERED: diphenhydrAMINE 30 GM TUBE TOP PRN (18:06)
[2020-04-08] MEDS: Apixaban 5 MG TAB PO SCH (21:09)
[2020-04-09 05:03] LABS: Hemoglobin 14.5 g/dL (12.0-16.0); Platelet Count 133 thou/uL (130-400)
[2020-04-09] MEDS: Sulfameth/Trimethoprim DS 800-160mg TAB PO SCH (08:27)
[2020-04-09] MEDS: Apixaban 5 MG TAB PO SCH (08:28)
--- NOTE | 2020-04-09 08:58 | PRG ---
DATE OF SERVICE: 04/09/2020 SUBJECTIVE: Ms. Velasco states she is not feeling well today. She has decreased energy. She had little sleep last night. She states she has tonoclonic jerks at night, which wakes her up. This started while in the hospital. She is unlikely getting restful sleep. Her recent lower extremity duplex was negative for DVT. She was switched to Eliquis yesterday. OBJECTIVE: VITAL SIGNS: Blood pressure 106/68, pulse 68, and temperature 97.4. LUNGS: Clear to auscultation. HEART: Regular rate and rhythm. ABDOMEN: Soft, nontender, and nondistended. EXTREMITIES: Show no edema. PERTINENT LABORATORY DATA: Hemoglobin 14.5, hematocrit 44.5. Creatinine 0.85. IMPRESSION: 1. Bilateral PE. 2. Premature atrial contractions. RECOMMENDATIONS: 1. Increase fatigue seems to be a chronic condition. I do not feel it was related to a low-dose metoprolol. She is on 12.5 mg one p.o. b.i.d. Her rate has been stable. She has significant PACs noted while in the office just last week, which appeared to have resolved. 2. We would recommend continuing metoprolol 12.5 mg one p.o. q.a.m. We will also recommend Eliquis 10 mg one p.o. b.i.d. We will decrease after 3 weeks. Etiology is likely from long car trip recently. We will discuss further treatment options as an outpatient. Otherwise, I have no further recommendations. We will follow peripherally. Please re-consult if needed. Job ID: [id number]
[2020-04-09 12:00] VITALS: BP 96/65; TEMP 97.8
--- NOTE | 2020-04-10 03:00 | DIS ---
DATE OF ADMISSION: 04/05/2020 DATE OF DISCHARGE: 04/09/2020 PRIMARY CARE PROVIDER: Kristina Addison MD DISCHARGE DIAGNOSES: 1. Pulmonary embolism. 2. Urinary tract infection. 3. COVID-19 test negative. 4. Palpitations. 5. Lung nodule. CONDITION OF PATIENT ON THE DAY OF DISCHARGE: Stable. I assessed Ms. Velasco on the day of discharge. She denies any chest pain or shortness of breath. Vital signs are stable. S1 and S2 are heard, regular. Lungs are clear to auscultation bilaterally. DISCHARGE MEDICATIONS: 1. Apixaban 10 mg 2 times a day for 6 more days, followed by 5 mg 2 times a day. 2. Toprol-XL 12.5 mg daily. 3. Protonix 40 mg daily. 4. Bactrim DS one tablet on the night of April 09, 2020. HOSPITAL COURSE: Ms. Velasco is a pleasant 49-year-old lady, who was admitted to [facility] on April 05, 2020 for palpitations. Nuclear stress test was normal, with gated SPECT LVEF of 93%. 2D echocardiogram showed left ventricular ejection fraction of 60% to 65%, normal diastolic function, trace mitral regurgitation, and mild tricuspid regurgitation. She had an elevated D-dimer. CT angiogram of the chest showed bilateral pulmonary thromboembolism and 8 mm right upper lobe pulmonary nodule, partially calcified. Serial followup chest CT was recommended, starting in three months. She also had abdominal discomfort. She was seen by Gastroenterology Service. Right upper quadrant ultrasound was unremarkable. She was started on PPI. She is being discharged home in a stable condition. CONSULTATIONS DURING THIS HOSPITALIZATION: Cardiology, Dr. Hernandez and Gastroenterology, Dr. Koroma. DIET: As tolerated. ACTIVITY: No restrictions. DISCHARGE DESTINATION: Home. TIME SPENT: Total amount of time spent coordinating this discharge: 31 minutes. POST ACUTE CARE FOLLOWUP: With primary care provider in 1 week. Job ID: [id number]
== END 2020-04-09 12:15 | disposition home or self-care (01) | DRG 176 ==
LOC: ERS 17:04 → OBSVTOIN 19:38 → 2SW 19:38 → 2NO 04-08 12:07
PROVIDERS: ADMIT Internal Medicine; ATTEND Internal Medicine
DX: I26.99 Other pulmonary embolism without acute cor pulmonale (principal); N39.0 Urinary tract infection, site not specified; Z20.828 Contact with and (suspected) exposure to other viral communicable diseases; I49.1 Atrial premature depolarization; R91.1 Solitary pulmonary nodule; K30 Functional dyspepsia; E87.6 Hypokalemia; R63.0 Anorexia; I08.1 Rheumatic disorders of both mitral and tricuspid valves; Z88.0 Allergy status to penicillin; Z68.21 Body mass index [BMI] 21.0-21.9, adult
CPT/HCPCS: 36415; 71045; 71275; 76705; 78452; 80048; 80053; 80306; 81003; 81015; 82565; 83690; 83735; 84443; 84484; 84703; 85014; 85018; 85025; 85049; 85379; 87086; 87635; 93005; 93017; 93306; 93970; 94760; A9500; J1650; J2785; J3010; J3480; J7050; Q9967; U0003